=== PATIENT | male | born 1940 | race Caucasian/White ===

== ENCOUNTER → 2017-02-14 | Outpatient (CLI) | payer MEDICARE, OTHER ==
[~2017-02-14] MED LIST: ASPI81CH PO; ATEN100 PO; ERGO50000 PO; LOSA50 PO; RANI150 PO; SIMV40 PO
== END | disposition home or self-care (01) ==
LOC: LAB SHORT 11:26 → PLD 11:26
DX: D22.0 Melanocytic nevi of lip (principal)
CPT/HCPCS: 88305

== ENCOUNTER → 2017-08-03 | Outpatient (CLI) | payer MEDICARE, OTHER | LOC: LAB SHORT 13:59 → PLD 13:59 | DX: D48.5 Neoplasm of uncertain behavior of skin (principal) | CPT/HCPCS: 88305 ==

== ENCOUNTER → 2020-01-23 | Outpatient (CLI) | payer MEDICARE, OTHER | LOC: LAB SHORT 13:39 → LAB 13:39 | DX: D03.61 Melanoma in situ of right upper limb, including shoulder (principal) | CPT/HCPCS: 88305 ==

== ENCOUNTER → 2020-02-11 | Outpatient (CLI) | payer MEDICARE, OTHER | END | disposition home or self-care (01) | LOC: LAB 08:02 → LAB SHORT 08:02 | DX: D03.61 Melanoma in situ of right upper limb, including shoulder (principal); D22.61 Melanocytic nevi of right upper limb, including shoulder | CPT/HCPCS: 88305 ==

== ENCOUNTER → 2020-07-23 | Outpatient (CLI) | payer MEDICARE, OTHER | END | disposition home or self-care (01) | LOC: LAB SHORT 13:59 | DX: D48.5 Neoplasm of uncertain behavior of skin (principal); L72.0 Epidermal cyst | CPT/HCPCS: 88305 ==